=== PATIENT | male | born 1985 | race Caucasian/White ===

== ENCOUNTER 2017-01-03 11:16 | Emergency (ER) | payer SELFPAY ==
[~2017-01-03] VITALS: Wt 99.8 kg
[2017-01-03] MEDS ORDERED: PREDNISONE50 MG PO (11:47)
== END 2017-01-03 11:51 | disposition home or self-care (01) ==
LOC: ED 11:16
DX: L25.9 Unspecified contact dermatitis, unspecified cause (principal)